=== PATIENT | male | born 1975 | race Caucasian/White ===

== ENCOUNTER 2018-08-17 10:43 | Observation (INO) ==
[2018-08-17] MEDS ORDERED: Levofloxacin 750 MG/150 ML 750 MG/150 ML BAG IVPB ONE (11:14)
[2018-08-17] MEDS ORDERED: Isovue-370 500 ML INFUS..BTL IV ONE (11:14)
[2018-08-17] MEDS ORDERED: 0.9 % Sodium Chloride 1,000 ML IVC ONE (11:14)
[2018-08-17] MEDS ORDERED: Ipratropium/Albuterol Neb 3 ML ONE (11:23)
[2018-08-17 11:38] LABS: Basophils % 0.3 %; Eosinophils # 0.1 K/mcL (0.0-0.6); Eosinophils % 0.9 %; Hematocrit 47.6 % (37.5-50.1); Immature Granulocytes % 0.3 % (0-4); Lymphocytes # 1.1 K/mcL (0.6-4.6); Lymphocytes % 9.2 %; Mean Corpuscular HGB Conc 35.7 g/dL (31.6-35.5); Mean Corpuscular Hemoglobin 31.3 pg (28.0-33.3); Mean Corpuscular Volume 87.7 fL (83.0-100.0); Mean Platelet Volume 9.2 fL (9.4-12.4); Monocytes % 7.9 %; Platelet Count 148 K/mcL (140-400); Red Blood Count 5.43 M/mcL (4.19-5.50); Segmented Neutrophils % 81.4 %
[2018-08-17 11:39] LABS: VBG HCO3 25 mEq/L (21-27); VBG PCO2 42 mmHg (41-51); VBG PH 7.38 pH Units (7.32-7.42); VBG PO2 35 mmHg (25-50)
[2018-08-17 12:02] LABS: Troponin I < 0.03 ng/mL (< 0.04)
[2018-08-17 12:04] LABS: Phosphorous 3.9 mg/dL (2.7-4.5)
[2018-08-17 12:06] LABS: Alanine Aminotransferase 15 Units/L (7-52); Albumin 4.6 g/dL (3.5-5.7); Albumin/Globulin Ratio 1.6 (1.1-2.2); Alkaline Phosphatase 102 Units/L (34-104); Aspartate Amino Transferase 16 Units/L (13-39); BUN/Creatinine Ratio 14 (6-26); Bilirubin,Total 0.9 mg/dL (0.3-1.0); Blood Urea Nitrogen 15 mg/dL (6-20); Calcium 9.7 mg/dL (8.6-10.3); Carbon Dioxide 25 mEq/L (23-29); Chloride 105 mEq/L (98-107); Globulin 2.8 g/dL (2.4-3.5); Glucose 108 mg/dL (70-105); Osmolality,Calculated 291 (280-300); Potassium 4.1 mEq/L (3.5-5.1); Sodium 140 mEq/L (136-145); Total Protein 7.4 g/dL (6.4-8.9); eGFR For Non-African Americans > 60 (> 60)
[2018-08-17] MEDS ORDERED: 0.9 % Sodium Chloride 1,000 ML IVC SCH (14:00)
--- NOTE | 2018-08-17 14:23 | Emergency Department Note ---
Disposition Clinical Impression: Dyspnea Qualifiers: Dyspnea type: unspecified Qualified Code(s): R06.00 - Dyspnea, unspecified Disposition: Admitted As Inpatient Condition: Fair General Adult HPI - General Chief complaint: ED Chest Pain Stated complaint: Chest pressure,cough Time Seen by Provider: 08/17/18 11:01 Source: patient Limitations: no limitations Nursing Notes Reviewed: Yes Vital Signs Reviewed: Yes - History of Present Illness HPI Narrative: This is a 42-year-old male who presents with concern for dyspnea. He actually has a history of having pneumonia 3 times in the past admits that he said several days of worsening dyspnea and productive sputum. He is actually quite dyspneic, hypoxic, tachycardic at triage. He has no history of immunosuppression. He denies fever at home but reports some chills. He does report cough. No history of hemoptysis. Patient is awake, to, mildly pale Cardiovascular exam shows tachycardic rate regular rhythm Lungs are diffusely wheezing with some rhonchi Abdomen is soft and nontender Extremities are well-perfused Strength is 5/5, sensation normal, reflexes were checked and normal Skin is pale and cool I 12 point review of systems was completed and pertinent positives are discussed in history of present illness Medical decision making Findings consistent with hypoxic respiratory failure from underlying multifocal pneumonia. Patient had a CT scan to exclude the possibility of pulmonary embolism given tachycardia and hypoxia. This is actually negative but did demonstrate multifocal pneumonia. I would start Levaquin and treatment 14 acquired pneumonia. Blood cultures were sent. Bronchodilators were given. IPAP was started due to tachypnea and hypoxia. The patient did have improvement with IV fluids, antibiotics and positive pressure ventilation utilizing BiPAP. I spent greater than 35 minutes of critical care time resuscitating this acutely ill patient suffering from hypoxic respiratory failure from underlying pneumonia. This was excluding billable procedures. Pain Scale: 7 - Related Data Home Medications Medication Instructions Recorded Confirmed Dextromethorphan Polistirex 30 mg PO Q12H PRN 08/17/18 08/17/18 [Delsym] Guaifenesin [Mucinex] 600 mg PO Q12H PRN 08/17/18 08/17/18 Naproxen Sodium [Aleve] 220 mg PO Q12H PRN 08/17/18 08/17/18 Allergies Allergy/AdvReac Type Severity Reaction Status Date / Time No Known Allergies Allergy Verified 12/05/17 12:11 Past Medical History - Past Medical History Medical history: Reports: asthma Surgical history: Reports: other Psychiatric history: Reports: no psych history - Social History Smoking Status: Current every day smoker Smokeless Tobacco Status: No Alcohol use: Reports: occasionally Drug use: Reports: none Physical Exam - General Limitations: no limitations General appearance: alert, in no apparent distress Course Vital Signs Temperature 98.0 F 08/17/18 10:48 Pulse Rate 95 08/17/18 10:48 Respiratory Rate 24 08/17/18 10:48 Blood Pressure 114/70 08/17/18 10:48 O2 Sat by Pulse Oximetry 91 08/17/18 10:48 Temperature 99.6 F 08/17/18 18:50 Pulse Rate 96 08/17/18 18:50 Respiratory Rate 16 08/17/18 18:50 Blood Pressure 111/61 08/17/18 18:50 O2 Sat by Pulse Oximetry 95 08/17/18 18:50 Oxygen Delivery Oxygen Delivery Room Air Medical Decision Making - Lab Data Result diagrams: 08/17/18 11:20 08/17/18 11:20 Lab Results 08/17/18 08/17/18 08/17/18 Range/Units 11:20 11:20 11:20 WBC 12.4 H (4.3-11.1) K/mcL RBC 5.43 (4.19-5.50) M/mcL Hgb 17.0 H (12.9-16.9) g/dL Hct 47.6 (37.5-50.1) % MCV 87.7 (83.0-100.0) fL MCH 31.3 (28.0-33.3) pg MCHC 35.7 H (31.6-35.5) g/dL RDW 13.0 (11.5-14.5) % Plt Count 148 (140-400) K/mcL MPV 9.2 L (9.4-12.4) fL Immature Gran % 0.3 (0-4) % Seg Neutrophils % 81.4 % Lymphocytes % 9.2 % Monocytes % 7.9 % Eosinophils % 0.9 % Basophils % 0.3 % Neutrophils # 10.0 H (1.6-8.9) K/mcL Lymphocytes # 1.1 (0.6-4.6) K/mcL Monocytes # 1.0 (0.0-1.3) K/mcL Eosinophils # 0.1 (0.0-0.6) K/mcL Basophils # 0.0 (0.0-0.2) K/mcL VBG pH (7.32-7.42) pH Units VBG pCO2 (41-51) mmHg VBG pO2 (25-50) mmHg VBG HCO3 (21-27) mEq/L Sodium 140 (136-145) mEq/L Potassium 4.1 (3.5-5.1) mEq/L Chloride 105 (98-107) mEq/L Carbon Dioxide 25 (23-29) mEq/L BUN 15 (6-20) mg/dL Creatinine 1.06 (0.70-1.30) mg/dL Est GFR ( Amer) > 60 (> 60) Est GFR (Non-Af Amer) > 60 (> 60) BUN/Creatinine Ratio 14 (6-26) Glucose 108 H (70-105) mg/dL Calculated Osmolality 291 (280-300) Lactic Acid (0.5-2.2) mmol/L Calcium 9.7 (8.6-10.3) mg/dL Phosphorus (2.7-4.5) mg/dL Magnesium (1.6-2.6) mg/dL Total Bilirubin 0.9 (0.3-1.0) mg/dL AST 16 (13-39) Units/L ALT 15 (7-52) Units/L Alkaline Phosphatase 102 (34-104) Units/L Troponin I < 0.03 (< 0.04) ng/mL B-Natriuretic Peptide 56 (Less than 100) pg/mL Serum Total Protein 7.4 (6.4-8.9) g/dL Albumin 4.6 (3.5-5.7) g/dL Globulin 2.8 (2.4-3.5) g/dL Albumin/Globulin Ratio 1.6 (1.1-2.2) 08/17/18 08/17/18 08/17/18 Range/Units 11:20 11:20 11:36 WBC (4.3-11.1) K/mcL RBC (4.19-5.50) M/mcL Hgb (12.9-16.9) g/dL Hct (37.5-50.1) % MCV (83.0-100.0) fL MCH (28.0-33.3) pg MCHC (31.6-35.5) g/dL RDW (11.5-14.5) % Plt Count (140-400) K/mcL MPV (9.4-12.4) fL Immature Gran % (0-4) % Seg Neutrophils % % Lymphocytes % % Monocytes % % Eosinophils % % Basophils % % Neutrophils # (1.6-8.9) K/mcL Lymphocytes # (0.6-4.6) K/mcL Monocytes # (0.0-1.3) K/mcL Eosinophils # (0.0-0.6) K/mcL Basophils # (0.0-0.2) K/mcL VBG pH 7.38 (7.32-7.42) pH Units VBG pCO2 42 (41-51) mmHg VBG pO2 35 (25-50) mmHg VBG HCO3 25 (21-27) mEq/L Sodium (136-145) mEq/L Potassium (3.5-5.1) mEq/L Chloride (98-107) mEq/L Carbon Dioxide (23-29) mEq/L BUN (6-20) mg/dL Creatinine (0.70-1.30) mg/dL Est GFR ( Amer) (> 60) Est GFR (Non-Af Amer) (> 60) BUN/Creatinine Ratio (6-26) Glucose (70-105) mg/dL Calculated Osmolality (280-300) Lactic Acid 1.6 (0.5-2.2) mmol/L Calcium (8.6-10.3) mg/dL Phosphorus 3.9 (2.7-4.5) mg/dL Magnesium 2.0 (1.6-2.6) mg/dL Total Bilirubin (0.3-1.0) mg/dL AST (13-39) Units/L ALT (7-52) Units/L Alkaline Phosphatase (34-104) Units/L Troponin I (< 0.04) ng/mL B-Natriuretic Peptide (Less than 100) pg/mL Serum Total Protein (6.4-8.9) g/dL Albumin (3.5-5.7) g/dL Globulin (2.4-3.5) g/dL Albumin/Globulin Ratio (1.1-2.2) Attestation Statement - Attestation Attestation: Heart rate 96 bpm, normal axis, multifocal PVCs, nonspecific ST segments, nonspecific abnormal ECG.
[2018-08-17] MEDS ORDERED: Naloxone 0.4 MG/ML INJ IVP PRN (16:09)
[2018-08-17] MEDS ORDERED: Albuterol 2.5 MG/3 ML NEBULIZER IH PRN (16:12)
[2018-08-17] MEDS ORDERED: methylPREDNISolone 125 MG/2 ML VIAL IVP ONE (16:13)
[2018-08-17] MEDS: Ipratropium/Albuterol Neb 3 ML IH SCH ×2 (16:18→22:15)
--- NOTE | 2018-08-17 17:16 | Internal Med History&Physical ---
Date of Encounter: 08/17/18 Time of Encounter: 17:00 Internal Medicine - H&P: HPI Chief complaint: Dyspnea with coughing and wheezing. Admitted From: Home Plans for Post Hospital Care: Home History of present illness: This 42-year-old man has been a heavy tobacco user since he was a teenager; smoking average 3 packs of cigarettes per day. He does not have any established medical problems. It was about 4 days ago when he developed nasal congestion. I couple days later he developed progressing difficulty breathing with coughing and wheezing. He could not sleep last 2 nights due to the symptoms mentioned above. He has had off and on chills for the last 24 hours. Denies chest pain. Denies abdominal pain, nausea and vomiting. He has normal urination. He likely suffers from COPD. He has no history of inhalant allergies. He does not have any other medical problems. REVIEW OF SYSTEMS: All 14 organ systems were reviewed by me with the patient. Positive and pertinent negative findings are listed above. The rest of organ systems is negative. PHYSICAL EXAM: Skin: Free of rash and discoloration. Eyes: Sclera is white. There is no discharge from eyes. ENMT: Oral/pharyngeal mucosa is normal in appearance. There is no discharge from nose or ears. Respiratory: His lung sounds are bilaterally diminished. I can hear a few bilateral rhonchi and wheezes. I cannot hear any crackles. CV: Heart is regular with no gallop or murmur. GI: Abdomen is flat and soft with no palpable mass or visceromegaly. : There is no tenderness in patient's flanks bilaterally. Neuro exam: He has good strength in upper and lower extremities. He has normal eye movements. Psychiatric: He has normal affect. His thought process is appropriate to the situation. His hemoglobin is 17.0 with a WBC of 12.4 thousand. Biochemistry panel is normal (bicarb is 25). CT angio of chest has been obtained. It does not show any pulmonary embolism. It shows moderate paraseptal and centrilobular emphysema in upper lobes. It shows bilateral perihilar infiltrates. It shows small groundglass infiltrates at lung apices. A/P: Bilateral pneumonia/COPD exacerbation. We will treat him with IV Levaquin, IV Solu-Medrol and nebulizer treatments with DuoNeb/albuterol. Acute hypoxic respiratory failure. He got some BiPAP treatments in the emergency department. We will continue supplemental oxygen. Tobacco abuse. I did counseling for this patient. It lasted roughly about 10 minutes. Past Med Surg Social Fam HX - Past Medical History Medical history: asthma Psychiatric history: no psych history - Past Surgical History Surgical History: other Additional surgical history: right knee surgery, steel plate in head, left leg surgery - Social History Smoking Status: Current every day smoker Smokeless Tobacco Status: No Alcohol use: occasionally Drug use: none Internal Medicine - H&P: Meds Dextromethorphan Polistirex [Delsym] 30 mg PO Q12H PRN 08/17/18 [History] Guaifenesin [Mucinex] 600 mg PO Q12H PRN 08/17/18 [History] Naproxen Sodium [Aleve] 220 mg PO Q12H PRN 08/17/18 [History] 3 Allergy/AdvReac Type Severity Reaction Status Date / Time No Known Allergies Allergy Verified 12/05/17 12:11 - Constitutional Vitals: Temp Pulse Resp BP Pulse Ox 98.0 F 108 16 108/59 93 08/17/18 10:55 08/17/18 16:04 08/17/18 16:38 08/17/18 16:38 08/17/18 16:04 General appearance: Present: mild distress, A&O X 3, answers questions appropriately Exam: xx Internal Med - H&P Results - Labs CBC & Chem 7: 08/17/18 11:20 08/17/18 11:20 - Assessment and plan (1) PNA (pneumonia) Current Visit: Yes Status: Acute Qualifiers: Pneumonia type: due to unspecified organism Laterality: bilateral Lung location: unspecified part of lung Qualified Code(s): J18.9 - Pneumonia, unspecified organism (2) Acute respiratory failure with hypoxia Current Visit: Yes Status: Acute (3) Tobacco abuse Current Visit: Yes Status: Acute - Time Spent With Patient Total time spent is greater than 50% in coordination of care (as documented) at patient's floor/unit and/or counseling patient: 25 - 35 minutes - VTE Reasons for not Prescribing Prophylaxis: Treatment not Indicated - Low risk for VTE Deep Vein Thrombosis/Pulmonary Embolism Present on Admission: No
[2018-08-17] MEDS: MethylPREDNISolone 40 MG/ML VIAL IVP SCH ×2 (20:44→23:10)
[2018-08-18] MEDS: Ipratropium/Albuterol Neb 3 ML IH SCH ×4 (04:06→22:37)
[2018-08-18] MEDS: MethylPREDNISolone 40 MG/ML VIAL IVP SCH ×3 (05:12→20:10)
[2018-08-18] MEDS: Levofloxacin 750 MG/150 ML 750 MG/150 ML BAG IVPB SCH (08:32)
[2018-08-18] MEDS: Nicotine 21 MG PATCH.TD24 TD SCH (08:39)
[2018-08-18] MEDS ORDERED: Levofloxacin 750 MG/150 ML 750 MG/150 ML BAG IVPB SCH (13:00)
--- NOTE | 2018-08-18 21:24 | Internal Med Progress Note ---
Hospitalist Progress Note - Encounter Date of Encounter: 08/18/18 Time of Encounter: 10:00 - Exam Vitals: Temp Pulse Resp BP Pulse Ox 97.9 F 78 18 122/55 95 08/18/18 15:48 08/18/18 15:48 08/18/18 15:48 08/18/18 15:48 08/18/18 15:48 Exam: xx - Assessment and Plan (1) PNA (pneumonia) Current Visit: Yes Status: Acute (2) COPD exacerbation Current Visit: Yes Status: Acute (3) Acute respiratory failure with hypoxia Current Visit: Yes Status: Acute (4) Tobacco abuse Current Visit: Yes Status: Acute - Time Spent with Patient Total time spent is greater than 50% in coordination of care (as documented) at patient's floor/unit and/or counseling patient: 25 - 35 minutes Plan of Care Discussed with: patient Internal Medicine: Result - Labs CBC & Chem 7: 08/17/18 11:20 08/17/18 11:20 - VTE Reasons for not Prescribing Prophylaxis: Treatment not Indicated - Low risk for VTE Deep Vein Thrombosis/Pulmonary Embolism Present on Admission: No Consult Discharge Plan - Plan Referrals: Garrick Rdz DO [Primary Care Provider] - (1) PNA (pneumonia) Qualifiers: Pneumonia type: due to unspecified organism Laterality: bilateral Lung location: unspecified part of lung Qualified Code(s): J18.9 - Pneumonia, unspecified organism
--- NOTE | 2018-08-19 00:45 | Electrocardiograph Report ---
[place] SEC Watch Test Date: 2018-08-17 Pat Name: Kvng Chu Department: EXAM3 Room: 2A31 Gender: M Case Folder: : 1975 Requested By: Cecilio Stewart Order Number: [id number] Reading MD: Praveen Lino Measurements Intervals [place] Rate: 96 P: 41 MA: 147 QRS: 12 QRSD: 105 T: 18 QT: 366 QTc: 463 Interpretive Statements Sinus tachycardia Ventricular bigeminy Electronically Signed On 08-19-2018 0:44:06 EDT by Praveen Lino
[2018-08-19] MEDS: Ipratropium/Albuterol Neb 3 ML IH SCH ×4 (04:17→22:12)
[2018-08-19 04:19] LABS: Basophils % 0.1 %; Hematocrit 40.4 % (37.5-50.1); Hemoglobin 14.1 g/dL (12.9-16.9); Immature Granulocytes % 0.6 % (0-4); Lymphocytes # 0.9 K/mcL (0.6-4.6); Lymphocytes % 5.6 %; Mean Corpuscular HGB Conc 34.9 g/dL (31.6-35.5); Mean Corpuscular Hemoglobin 30.4 pg (28.0-33.3); Mean Corpuscular Volume 87.1 fL (83.0-100.0); Mean Platelet Volume 9.3 fL (9.4-12.4); Monocytes % 6.2 %; Neutrophils # 14.8 K/mcL (1.6-8.9); Platelet Count 158 K/mcL (140-400); Red Blood Count 4.64 M/mcL (4.19-5.50); Red Cell Distribution Width 13.3 % (11.5-14.5); Segmented Neutrophils % 87.5 %
[2018-08-19 04:34] LABS: BUN/Creatinine Ratio 20 (6-26); Blood Urea Nitrogen 17 mg/dL (6-20); Calcium 9.1 mg/dL (8.6-10.3); Carbon Dioxide 23 mEq/L (23-29); Chloride 108 mEq/L (98-107); Glucose 166 mg/dL (70-105); Osmolality,Calculated 291 (280-300); Potassium 4.4 mEq/L (3.5-5.1); Sodium 138 mEq/L (136-145); eGFR For Non-African Americans > 60 (> 60)
[2018-08-19] MEDS: predniSONE 20 MG TABLET PO SCH (08:08)
[2018-08-19] MEDS: Levofloxacin 750 MG/150 ML 750 MG/150 ML BAG IVPB SCH (08:09)
[2018-08-19] MEDS: Nicotine 21 MG PATCH.TD24 TD SCH (08:09)
--- NOTE | 2018-08-19 21:57 | Internal Med Progress Note ---
Hospitalist Progress Note - Encounter Date of Encounter: 08/19/18 Time of Encounter: 11:00 - Subjective Interval History: SUBJECTIVE: The patient feels progressively better. We decreased his nasal cannula oxygen to 1.5 L/min. He does have mild/moderate cough; occasionally with wheezing. He slept pretty good last night. Denies chest pain. Denies abdominal pain, nausea and vomiting. He has normal urination. OBJECTIVE: Skin: Free of rash and discoloration. ENMT: Oral/pharyngeal mucosa is normal in appearance. Eyes: Sclera is white. There is no discharge from eyes. Respiratory: Normal breath sounds; I can hear a few rhonchi and wheezes. CV: Heart is regular; no gallop or murmur. GI: Abdomen is soft and not tender. There is no palpable mass or visceromegaly. Neuro: There is no focal deficits. Chest x-ray from today shows bilateral pleural effusions with basilar opacities. ASSESSMENT AND PLAN: Pneumonia/COPD exacerbation. With acute hypoxic respiratory failure. Getting better. He is on oral prednisone at 40 mg every morning. We will continue IV Levaquin and nebulizer treatments with DuoNeb/albuterol. I am requesting echocardiogram for him, as he developed a bilateral pleural effusion. - Exam Vitals: Temp Pulse Resp BP Pulse Ox 97.9 F 83 17 119/64 93 08/19/18 21:51 08/19/18 21:51 08/19/18 21:51 08/19/18 21:51 08/19/18 21:51 Exam: xx - Assessment and Plan (1) PNA (pneumonia) Current Visit: Yes Status: Acute (2) COPD exacerbation Current Visit: Yes Status: Acute (3) Acute respiratory failure with hypoxia Current Visit: Yes Status: Acute (4) Pleural effusion, bilateral Current Visit: Yes Status: Acute (5) Tobacco abuse Current Visit: Yes Status: Acute - Time Spent with Patient Total time spent is greater than 50% in coordination of care (as documented) at patient's floor/unit and/or counseling patient: Internal Medicine: Result - Labs CBC & Chem 7: 08/19/18 04:02 08/19/18 04:02 Labs: Short CBC 08/19/18 Range/Units 04:02 WBC 16.9 H (4.3-11.1) K/mcL Hgb 14.1 D (12.9-16.9) g/dL Hct 40.4 (37.5-50.1) % Plt Count 158 (140-400) K/mcL Neutrophils # 14.8 H (1.6-8.9) K/mcL BMP 08/19/18 04:02 Sodium 138 Potassium 4.4 Chloride 108 H Carbon Dioxide 23 BUN 17 Creatinine 0.84 Glucose 166 H Calcium 9.1 - Impressions Impressions Chest X-Ray 08/18/18 21:33 IMPRESSION: Bilateral pleural effusions with basilar opacities the could reflect atelectasis, aspiration or pneumonia. D/ / Eliezer Liao / Eliezer Liao Interpreting Provider: Eliezer Liao - VTE Reasons for not Prescribing Prophylaxis: Treatment not Indicated - Low risk for VTE Deep Vein Thrombosis/Pulmonary Embolism Present on Admission: No Consult Discharge Plan - Plan Referrals: Garrick Rdz DO [Primary Care Provider] - (1) PNA (pneumonia) Qualifiers: Pneumonia type: due to unspecified organism Laterality: bilateral Lung location: unspecified part of lung Qualified Code(s): J18.9 - Pneumonia, unspecified organism
[2018-08-20] MEDS: Ipratropium/Albuterol Neb 3 ML IH SCH (03:59)
[2018-08-20] MEDS ORDERED: Acetaminophen 325 MG TABLET PO ONE (04:19)
[2018-08-20] MEDS: Nicotine 21 MG PATCH.TD24 TD SCH (09:23)
[2018-08-20] MEDS: Levofloxacin 750 MG/150 ML 750 MG/150 ML BAG IVPB SCH (09:23)
[2018-08-20] MEDS: predniSONE 20 MG TABLET PO SCH (09:24)
[2018-08-20] MEDS ORDERED: Acetaminophen 325 MG TABLET PO PRN (09:34)
[2018-08-20] MEDS ORDERED: Albuterol 2.5 MG/3 ML NEBULIZER IH SCH (10:00)
[2018-08-20] MEDS ORDERED: Pneumococcal 23 Valent Vaccine 25 MCG/0.5 ML VIAL IM ONE (10:53)
[2018-08-20 11:02] VITALS: BP 113/77
--- NOTE | 2018-08-20 12:49 | Discharge Summary ---
Date of Encounter: 08/20/18 Time of Encounter: 12:46 - Discharge Diagnosis (1) PNA (pneumonia) Priority: Primary Status: Acute Qualifiers: Pneumonia type: due to unspecified organism Laterality: bilateral Lung location: unspecified part of lung Qualified Code(s): J18.9 - Pneumonia, unspecified organism (2) COPD exacerbation Priority: Primary Status: Acute (3) Acute respiratory failure with hypoxia Priority: Primary Status: Resolved (4) Pleural effusion, bilateral Priority: Primary Status: Acute (5) Tobacco abuse Priority: Secondary Status: Chronic Hospital course: HOSPITAL COURSE: This 42-year-old man was admitted to the hospital with progressing dyspnea, coughing and wheezing; developing in the last few days preceding this admission. Those symptoms were likely triggered by some upper respiratory tract infection; had nasal congestion at the very beginning. He is a heavy tobacco user. We found him to have underlying COPD; was not treated for that before. He got a chest x-ray and CT of chest done at admission. They showed bilateral pneumonia/emphysema. I treated him with IV Levaquin and IV Solu-Medrol. He got nebulizer treatments with DuoNeb and supplemental oxygen (had hypoxic respiratory failure). 2 days before the discharge I switched him to oral prednisone. He is resting dyspnea subsided. He continues to have mild/moderate cough but not wheezing. CONDITION AT DISCHARGE: He feels good. He is on room air oxygen. He continues to have mild/moderate cough but not wheezing. Denies chest pain. Denies abdominal pain, nausea and vomiting. Skin: Free of rash and discoloration. Respiratory: Normal breath sounds with no crackles and wheezes bilaterally. CV: Heart is regular with no gallop or murmur. GI: Abdomen is flat and soft with no palpable mass or visceromegaly. Neuro exam: There is no focal deficits. Normal speech, swallowing and gait. SEE DISCHARGE ORDERS/MEDICATIONS.. I discharge him on oral Levaquin (7 more days) and oral prednisone (5 more days) . He will be using inhalations with Combivent. Discharge discussed with: patient, family, nurse - Time Spent with Patient Total time spent providing and/or coordinating discharge services: Greater than 30 minutes (40 minutes..) - Discharge Medications Prescriptions: Albuterol Sulfate [Albuterol Inhaler] 2 puff IH QID #1 hfa.aer.ad levoFLOXacin [Levaquin] 500 mg PO DAILY #7 tablet Nicotine Patch [Nicoderm] 21 mg TD DAILY #30 patch.td24 predniSONE [PredniSONE] 20 mg PO DAILY #5 tablet Home Medications: Dextromethorphan Polistirex [Delsym] 30 mg PO Q12H PRN 08/17/18 [History] Guaifenesin [Mucinex] 600 mg PO Q12H PRN 08/17/18 [History] Naproxen Sodium [Aleve] 220 mg PO Q12H PRN 08/17/18 [History] Albuterol Sulfate [Albuterol Inhaler] 2 puff IH QID #1 hfa.aer.ad 08/20/18 [Rx] Nicotine Patch [Nicoderm] 21 mg TD DAILY #30 patch.td24 08/20/18 [Rx] levoFLOXacin [Levaquin] 500 mg PO DAILY #7 tablet 08/20/18 [Rx] predniSONE [PredniSONE] 20 mg PO DAILY #5 tablet 08/20/18 [Rx] Allergies/Adverse Reactions: 3 Allergy/AdvReac Type Severity Reaction Status Date / Time No Known Allergies Allergy Verified 12/05/17 12:11 Date of admission: 08/17/18 15:31 Primary care physician: Garrick Rdz Discharging clinician: Nikita Brody Anticipated date of discharge: 08/20/18 - Constitutional Vitals: Temp Pulse Resp BP Pulse Ox 97.8 F 73 18 113/77 98 08/20/18 11:02 08/20/18 11:02 08/20/18 11:02 08/20/18 11:02 08/20/18 11:02 General appearance: Present: mild distress, A&O X 3, no acute distress, answers questions appropriately Exam: xx - Patient Status Disposition: Home, Self-Care Condition: Fair Functional capacity at discharge: independent ambulation Overall status at discharge: patient is progressing back to baseline - Discharge Instructions Follow Up With: Garrick Rdz DO [Primary Care Provider] - Additional Instructions: THE PT WAS ADVISED TO QUIT SMOKING CIGARETTES. CXR -- IN ABOUT 10 DAYS (DX: PNA; B/L PLEURAL EFFUSION). FOLLOW-UP WITH PCP -N ABOUT 2 WEEKS. - Diet and Activity Activity: resume usual activities as tolerated Diet: regular diet - VTE Reasons for not Prescribing Prophylaxis: Treatment not Indicated - Low risk for VTE Deep Vein Thrombosis/Pulmonary Embolism Present on Admission: No
== END 2018-08-20 14:18 | disposition home or self-care (01) ==
LOC: SUATTDRO → 2ANU 10:43 → EMEROOARM 10:43 → SUATTDRO 15:31 → 2ANU 16:49
PROVIDERS: ADMIT Internal Medicine; ATTEND Internal Medicine

== ENCOUNTER 2021-03-06 08:05 | Observation (INO) ==
[2021-03-06] MEDS ORDERED: methylPREDNISolone 125 MG/2 ML VIAL IVP ONE (08:17)
[2021-03-06] MEDS: Ipratropium/Albuterol Neb 3 ML IH ONE ×2 (08:45→09:08)
[2021-03-06] MEDS: Albuterol 2.5 MG/3 ML NEBULIZER IH ONE ×2 (08:45→09:08)
[2021-03-06 08:46] LABS: Basophils # 0.1 K/mcL (0.0-0.2); Basophils % 0.4 %; Eosinophils # 0.1 K/mcL (0.0-0.6); Eosinophils % 0.5 %; Immature Granulocytes % 0.6 % (0-4); Lymphocytes # 1.3 K/mcL (0.6-4.6); Lymphocytes % 7.2 %; Mean Corpuscular HGB Conc 34.8 g/dL (31.6-35.5); Mean Corpuscular Hemoglobin 30.2 pg (28.0-33.3); Mean Corpuscular Volume 86.8 fL (83.0-100.0); Monocytes # 1.5 K/mcL (0.0-1.3); Monocytes % 7.9 %; Neutrophils # 15.2 K/mcL (1.6-8.9); Platelet Count 185 K/mcL (140-400); Red Cell Distribution Width 12.7 % (11.5-14.5); Segmented Neutrophils % 83.4 %; White Blood Count 18.2 K/mcL (4.3-11.1)
[2021-03-06] MEDS ORDERED: Albuterol 2.5 MG/3 ML NEBULIZER ONE (09:04)
[2021-03-06] MEDS ORDERED: Ipratropium/Albuterol Neb 3 ML ONE (09:04)
[2021-03-06 09:07] LABS: BUN/Creatinine Ratio 16 (6-26); Blood Urea Nitrogen 16 mg/dL (6-20); Calcium 9.6 mg/dL (8.6-10.3); Carbon Dioxide 21 mEq/L (23-29); Chloride 103 mEq/L (98-107); Glucose 113 mg/dL (70-105); Osmolality,Calculated 284 (280-300); Potassium 4.2 mEq/L (3.5-5.1); Sodium 136 mEq/L (136-145); Troponin I < 0.03 ng/mL (< 0.04); eGFR For African Americans > 60 (> 60); eGFR For Non-African Americans > 60 (> 60)
[2021-03-06] MEDS ORDERED: 0.9 % Sodium Chloride 1,000 ML IVC ONE ×2 (09:39→19:32)
[2021-03-06] MEDS ORDERED: cefTRIAXone 1,000 MG in Water for inj. (sterile) 10 ML IVP ONE (09:39)
[2021-03-06] MEDS ORDERED: Azithromycin 500 MG in 0.9 % Sodium Chloride 250 ML IVPB ONE (09:44)
[2021-03-06] MEDS ORDERED: Albuterol 2.5 MG/3 ML NEBULIZER IH ONE (10:50)
[2021-03-06] MEDS ORDERED: Isovue-370 500 ML BOTTLE IVP ONE (10:50)
[2021-03-06] MEDS ORDERED: Acetaminophen 325 MG TABLET PO PRN (11:31)
[2021-03-06] MEDS ORDERED: Ondansetron 4 MG/2 ML VIAL IVP PRN (11:31)
[2021-03-06] MEDS ORDERED: Melatonin 3 MG TABLET PO PRN (11:31)
[2021-03-06] MEDS ORDERED: Ipratropium/Albuterol Neb 3 ML IH PRN (11:34)
[2021-03-06] MEDS ORDERED: Nicotine 2 MG GUM BC PRN (11:41)
[2021-03-06] MEDS: Ipratropium/Albuterol Neb 3 ML IH SCH ×3 (14:50→20:13)
[2021-03-06] MEDS: Nicotine 21 MG PATCH.TD24 TD SCH (15:27)
[2021-03-07] MEDS: Ipratropium/Albuterol Neb 3 ML IH SCH ×4 (00:08→11:14)
[2021-03-07 05:58] LABS: Hematocrit 39.6 % (37.5-50.1); Hemoglobin 13.5 g/dL (12.9-16.9); Mean Corpuscular HGB Conc 34.1 g/dL (31.6-35.5); Mean Corpuscular Hemoglobin 30.2 pg (28.0-33.3); Mean Corpuscular Volume 88.6 fL (83.0-100.0); Mean Platelet Volume 9.1 fL (9.4-12.4); Platelet Count 171 K/mcL (140-400); Red Blood Count 4.47 M/mcL (4.19-5.50); Red Cell Distribution Width 13.2 % (11.5-14.5); White Blood Count 13.1 K/mcL (4.3-11.1)
[2021-03-07 06:14] LABS: BUN/Creatinine Ratio 18 (6-26); Blood Urea Nitrogen 17 mg/dL (6-20); Calcium 9.1 mg/dL (8.6-10.3); Carbon Dioxide 21 mEq/L (23-29); Chloride 108 mEq/L (98-107); Glucose 137 mg/dL (70-105); Osmolality,Calculated 290 (280-300); Sodium 138 mEq/L (136-145); eGFR For African Americans > 60 (> 60); eGFR For Non-African Americans > 60 (> 60)
[2021-03-07 06:22] VITALS: BP 112/61
[2021-03-07] MEDS: Nicotine 21 MG PATCH.TD24 TD SCH (07:41)
[2021-03-07] MEDS ORDERED: Azithromycin 250 MG TABLET PO SCH (09:00)
[2021-03-07] MEDS ORDERED: cefTRIAXone 1,000 MG in Water for inj. (sterile) 10 ML IVP SCH (09:00)
[2021-03-07] MEDS ORDERED: predniSONE 20 MG TABLET PO SCH (09:00)
== END 2021-03-07 12:42 | disposition home or self-care (01) ==
LOC: EMEROOARM 08:05 → INTOOBSV 12:43 → SUATTDRO 12:43 → 2ANU 12:43
PROVIDERS: ADMIT Internal Medicine; ATTEND Internal Medicine